=== PATIENT | male | born 1990 | race Two or more races ===

== ENCOUNTER 2017-05-17 19:46 | Emergency (ER) | payer SELFPAY ==
[2017-05-17 19:46] VITALS: BMI 21.8
[2017-05-17 20:17] VITALS: BP 112/70; TEMP 98.4
--- NOTE | 2017-05-17 20:57 | C.PDOC ---
History Of Present Illness Patient is a 26 year old male who presents to the ER with a complaint an itchy diffuse rash to his trunk and extremities for the past 3 days. Patient states he sleeps in the same bed as his and child and states they are asymptomatic. 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 Patient also denies symptoms of fever, sore throat, URI, chills, SOB, recent travel. Time Seen by Provider: 05/17/17 20:24 Chief Complaint (Nursing): Abnormal Skin Integrity History Per: Patient History/Exam Limitations: no limitations Onset/Duration Of Symptoms: Days (3) Current Symptoms Are (Timing): Still Present Location Of Injury: Right: Arm, Leg, Left: Arm, Leg, Anterior: Abdomen, Back, Posterior: Abdomen, Back Quality Of Symptoms: Itching Recent travel outside of the [place]: No Past Medical History Reviewed: Historical Data, Nursing Documentation, Vital Signs Vital Signs: Last Vital Signs Temp 98.4 F 05/17/17 20:12 Pulse 68 05/17/17 21:05 Resp 18 05/17/17 21:05 BP 112/70 05/17/17 20:12 Pulse Ox 100 05/17/17 22:42 - Medical History PMH: Asthma (as a child) Surgical History: No Surg Hx - [facility] Procedures OTHER SKIN & SUBQ I D (10/21/14) TETANUS TOXOID ADMINIST (05/31/14) Family History: States: Unknown Family Hx - Social History Hx Tobacco Use: Yes Hx Alcohol Use: Yes Hx Substance Use: Yes - Immunization History Hx Tetanus Toxoid Vaccination: Yes Hx Influenza Vaccination: No Hx Pneumococcal Vaccination: No Review Of Systems Constitutional: Negative for: Fever, Chills Skin: Positive for: Rash Physical Exam - Physical Exam Appears: Well, Non-toxic, No Acute Distress Skin: Normal Color, Warm, Dry, Rash (Scattered erythematous raised papules in alice tree distribution, no herald patch seen) Head: Atraumatic, Normacephalic Eye(s): bilateral: Normal Inspection, PERRL, EOMI Ear(s): Left: Normal Nose: Normal, No Flaring, No Discharge Oral Mucosa: Moist, No Drooling, No Trismus Throat: Normal, No Erythema, No Exudate, Other (no oral lesions) Neck: Normal, Normal ROM, Decreased ROM, No Midline Cervical Tenderness, Supple Chest: Symmetrical, No Tenderness Cardiovascular: Rhythm Regular, No Murmur Respiratory: Normal Breath Sounds, No Decreased Breath Sounds, No Accessory Muscle Use, No Rales, No Rhonchi, No Stridor, No Wheezing Extremity: Normal ROM, No Tenderness, No Swelling Pulses: Left Radial: Normal, Right Radial: Normal Neurological/Psych: Oriented x3, Normal Speech, Normal Cognition, Normal Cranial Nerves, Normal Motor, Normal Sensation ED Course And Treatment O2 Sat by Pulse Oximetry: 100 (Room air) Pulse Ox Interpretation: Normal Medical Decision Making Medical Decision Makin yo M presents with diffuse itchy rash to the trunk and all 4 extremities. Based on exam, rash appears consistent with pityriasis rosea, Rx will be given and instructed to follow up with dermatology referral provided for further evaluation. Disposition Counseled Patient/Family Regarding: Diagnosis, Need For Followup, Rx Given - Disposition Disposition: HOME/ ROUTINE Disposition Time: 20:55 Condition: STABLE Additional Instructions: Follow up with dermatology referral provided. Take medications as prescribed. Prescriptions: Cetirizine HCl [Zyrtec] 10 mg PO DAILY #30 capsule predniSONE [predniSONE Tab] 40 mg PO DAILY #10 tab Instructions: Acute Rash (ED), Pityriasis rosea (ED) Forms: Work Excuse Print Language: NIGERIEN - Clinical Impression Clinical Impression: Rash - PA / [employer] / Resident Statement MD/DO has reviewed & agrees with the documentation as recorded. - Scribe Statement The provider has reviewed the documentation as recorded by the Scribe Bladimir Zepeda All medical record entries made by the Luz were at my direction and personally dictated by me. I have reviewed the chart and agree that the record accurately reflects my personal performance of the history, physical exam, medical decision making, and the department course for this patient. I have also personally directed, reviewed, and agree with the discharge instructions and disposition.
[2017-05-17 21:10] VITALS: PULSE 68; RESP 18
[2017-05-17 22:36] VITALS: O2SAT 100
== END 2017-05-17 21:10 | disposition home or self-care (01) ==
LOC: C.ER 19:46
DX: R21 Rash and other nonspecific skin eruption (principal)